=== PATIENT | male | born 1965 | race Caucasian/White ===

== ENCOUNTER 2022-07-12 13:55 | Emergency (ER) | payer BC, MEDICAID ==
[~2022-07-12] VITALS: Ht 162.6 cm; Wt 63.5 kg
[~2022-07-12 13:55] MED LIST: GABA600T12 PO; HYDR-4354 PO; PANT40TA2 PO; SERT50TA PO
--- NOTE | 2022-07-12 14:14 | NUR ---
Pt stated he fell forward onto outstretched left hand strickin ground and a rock w/left hand. cap refill < 2 sec. movement difficult due to pain. sensation limited due to previous injury.
[2022-07-12] MEDS ORDERED: IBUP-1955 PO (14:43)
--- NOTE | 2022-07-12 14:43 | NUR ---
wrapped pt's left hand with elastic bandage, PMS same as before wrap.
--- NOTE | 2022-07-12 14:49 | NUR ---
Gave pt RX and d/c instructions, pt verbalized understanding.
== END 2022-07-12 14:55 | disposition home or self-care (01) ==
LOC: ER 13:58
DX: S60.222A Contusion of left hand, initial encounter (principal); W01.0XXA Fall on same level from slipping, tripping and stumbling without subsequent striking against object, initial encounter; Y92.89 Other specified places as the place of occurrence of the external cause; F17.210 Nicotine dependence, cigarettes, uncomplicated; Z88.5 Allergy status to narcotic agent; G89.4 Chronic pain syndrome; K21.9 Gastro-esophageal reflux disease without esophagitis; F32.A Depression, unspecified; Z79.899 Other long term (current) drug therapy
CPT/HCPCS: 73130; A4663

== ENCOUNTER 2022-08-02 07:59 | Emergency (ER) | payer MEDICAID ==
[~2022-08-02] VITALS: Ht 162.6 cm; Wt 63.5 kg
[~2022-08-02 07:59] MED LIST changes: +IBUP-1955 PO
--- NOTE | 2022-08-02 08:30 | NUR ---
[email or web address], medical screening exam in progress
[2022-08-02] MEDS ORDERED: ACETAMINOPHEN 325 MG TABLET ONE (08:36)
[2022-08-02] MEDS ORDERED: LIDOCAINE 5% PATCH TD ONE ×2 (08:36→08:45)
[2022-08-02] MEDS ORDERED: ACETAMINOPHEN 325 MG TABLET PO ONE (08:45)
--- NOTE | 2022-08-02 08:48 | NUR ---
Patient refused x-ray and wanted to go home, notified.
--- NOTE | 2022-08-02 08:53 | NUR ---
Patient discharged to home in stable condition with steady gait. Written and verbal after care instructions given. Patient verbalized understanding and compliance of instructions. Stressed follow up with primary doctor and orthopedic doctor as scheduled or return to ER for worsening s/s. New pair of hospital socks give. Patient has his own shoes.
[2022-08-02 09:29] VITALS: BP 129/79
== END 2022-08-02 08:53 | disposition home or self-care (01) ==
LOC: ER 08:02
DX: M25.561 Pain in right knee (principal); Z96.651 Presence of right artificial knee joint; J44.9 Chronic obstructive pulmonary disease, unspecified; F17.210 Nicotine dependence, cigarettes, uncomplicated; K21.9 Gastro-esophageal reflux disease without esophagitis; G89.4 Chronic pain syndrome; M54.12 Radiculopathy, cervical region; Z88.5 Allergy status to narcotic agent; Z86.59 Personal history of other mental and behavioral disorders
CPT/HCPCS: A4663